=== PATIENT | male | born 1970 | race Caucasian/White ===

== ENCOUNTER 2016-07-06 07:37 | Emergency (ER) | payer MEDICAID ==
[~2016-07-06 07:37] MED LIST: VITD400 PO
[2016-07-06 07:39] VITALS: BP 156/89; PULSE 74; RESP 14; TEMP 98.2; O2SAT 98
[2016-07-06] MEDS ORDERED: SODIUM CHLOR 0.9% 1000 ML INJ 1,000 ML IV ONE (08:45)
[2016-07-06] MEDS ORDERED: SODIUM CHLORIDE 0.9% FLUSH 5 ML FLUSH IVF PRN (08:45)
[2016-07-06 09:02] VITALS: RESP 18; O2SAT 99
--- NOTE | 2016-07-06 09:19 | RADRPT ---
EXAM DATE/TIME: 07/06/2016 09:08 [facility] COMPARISON: No previous studies available for comparison. INDICATIONS : Chest pain. MEDICAL HISTORY : None. SURGICAL HISTORY : None. ENCOUNTER: Initial ACUITY: 2 days PAIN SCORE: 8/10 LOCATION: Bilateral middle chest FINDINGS: PA and lateral views of the chest demonstrate the lungs to be symmetrically aerated. There is a suspe cted small granuloma in the right upper lung. The lungs are otherwise clear. No effusion is seen. The cardiomediastinal contours are unremarkable. Osseous structures are intact. CONCLUSION: No acute disease. Zander Santiago MD on July 06, 2016 at 9:15 Board Certified Radiologist. This report was verified electronically.
[2016-07-06 09:20] LABS: AUTOMATED NEUTROPHIL # 4.3 TH/MM3 (1.8-7.7); BASOPHIL % 0.4 % (0.0-2.0); EOSINOPHIL # 0.1 TH/MM3 (0-0.4); EOSINOPHIL % 1.4 % (0.0-4.0); LYMPH % 22.8 % (9.0-44.0); LYMPHOCYTE # 1.5 TH/MM3 (1.0-4.8); MEAN CELL VOLUME 86.4 FL (80.0-100.0); MEAN CORPUSCULAR HEMOGLOBIN 29.3 PG (27.0-34.0); MEAN CORPUSCULAR HGB CONC 33.9 % (32.0-36.0); MONO % 8.7 % (0.0-8.0); NEUT % 66.7 % (16.0-70.0); PLATELET COUNT 104 TH/MM3 (150-450); RED BLOOD COUNT 5.09 MIL/MM3 (4.50-5.90); RED CELL DISTRIBUTION WIDTH 13.8 % (11.6-17.2); WHITE BLOOD COUNT 6.4 TH/MM3 (4.0-11.0)
[2016-07-06 09:23] LABS: HEMO FLAGS AUTO DIFF
[2016-07-06 09:28] LABS: APTT (PATIENT) 27.5 SEC (24.3-30.1); INTERNATIONAL NORMALIZED RATIO 0.9 RATIO; PROTHROMBIN TIME - PATIENT 10.3 SEC (9.8-11.6)
[2016-07-06 09:33] LABS: ANION GAP 7 MEQ/L (5-15); AST (GOT) 18 U/L (15-37); BLOOD UREA NITROGEN 13 MG/DL (7-18); CHLORIDE 104 MEQ/L (98-107); GLOMERULAR FILTRATION RATE 79 ML/MIN (>89); MAGNESIUM 1.8 MG/DL (1.5-2.5); POTASSIUM 4.7 MEQ/L (3.5-5.1); SODIUM (NA) 138 MEQ/L (136-145)
[2016-07-06 09:38] LABS: ALKALINE PHOSPHATASE 97 U/L (45-117); ALT (GPT) 37 U/L (12-78); TOTAL BILIRUBIN ADULT 0.3 MG/DL (0.2-1.0)
[2016-07-06] MEDS ORDERED: RANITIDINE HCL 150 MG TAB PO ONE (09:45)
[2016-07-06 09:55] LABS: PLATELET ESTIMATE SMEAR LOW (NORMAL); SCAN/DIFF AUTO DIFF CONFIRMED
[2016-07-06 09:56] LABS: PLATELET MORPHOLOGY ENLARGED (NORMAL)
[2016-07-06] MEDS ORDERED: RANI150C PO (10:19)
--- NOTE | 2016-07-06 10:20 | PD ---
HPI Chief Complaint: GI Complaint Time Seen by Provider: 08:34 Travel History International Travel<30 days: No Contact w/Intl Traveler<30days: No History of Present Illness HPI 46-year-old man, presents to the emergency department with a combination of concern for blood in his stools, vomiting, shortness of breath with some chest pain. 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 They did a resection with an immediate re-anastomosis. This is a time his had intermittent bleeding. He's had extensive workup hasn't revealed any source. Started having the symptoms again starting about a week ago. Over the past couple days that increased short of breath, weakness, hot flashes, feeling faint and lightheaded. He has had some chest pain as well. He had a heart catheter done in his 20s which was negative when he was having chest pain and symptoms were attributed distress. He had a stress test done in April that was reportedly negative as well. History Past Medical History Narrative Medical Hypertension Previously treated for prediabetes with metformin Influenza Vaccination: Yes Social History Alcohol Use: No Tobacco Use: Yes (0.5 ppd) Allergies-Medications (Allergen,Severity, Reaction): Coded Allergies: Morphine (Verified Allergy, Severe, Rash, 05/17/16) violent vomiting Phenergan (Verified Allergy, Severe, HIVES, 05/17/16) Reported Meds & Prescriptions Reported Meds & Active Scripts Active Reported Vitamin D3 (Cholecalciferol) Unknown Strength Tab 1 Tab PO DAILY Review of Systems Except as stated in HPI: all other systems reviewed are Neg Physical Exam Narrative GENERAL: Well-appearing 46-year-old man, no acute distress. SKIN: Warm and dry. HEAD: Atraumatic. Normocephalic. EYES: Pupils equal and round. No scleral icterus. No injection or drainage. ENT: No nasal bleeding or discharge. Mucous membranes pink and moist. NECK: Trachea midline. No JVD. CARDIOVASCULAR: Regular rate and rhythm. No murmur appreciated. RESPIRATORY: No accessory muscle use. Clear to auscultation. Breath sounds equal bilaterally. GASTROINTESTINAL: Mild epigastric tenderness. No rebound or guarding. MUSCULOSKELETAL: No obvious deformities. No clubbing. No cyanosis. No edema. NEUROLOGICAL: Awake and alert. No obvious cranial nerve deficits. Motor grossly within normal limits. Normal speech. PSYCHIATRIC: Appropriate mood and affect; insight and judgment normal. Data Data Last Documented VS Vital Signs Date Time Temp Pulse Resp B/P Pulse Ox O2 Delivery O2 Flow Rate FiO2 07/06/16 09:02 98 Room Air 07/06/16 09:02 18 07/06/16 07:39 98.2 74 156/89 Orders Electrocardiogram (07/06/16 08:34) Complete Blood Count With Diff (07/06/16 08:34) Comprehensive Metabolic Panel (07/06/16 08:34) Magnesium (Mg) (07/06/16 08:34) Prothrombin Time / Inr (Pt) (07/06/16 08:34) Act Partial Throm Time (Ptt) (07/06/16 08:34) Troponin I (07/06/16 08:34) Lipase (07/06/16 08:34) Ecg Monitoring (07/06/16 08:34) Iv Access Insert/Monitor (07/06/16 08:34) Oximetry (07/06/16 08:34) Oxygen Administration (07/06/16 08:34) Sodium Chloride 0.9% Flush (Ns Flush) (07/06/16 08:45) Chest, Pa & Lat (07/06/16 08:34) Sodium Chlor 0.9% 1000 Ml Inj (Ns 1000 M (07/06/16 08:45) Ranitidine (Zantac) (07/06/16 09:45) Labs Laboratory Tests Test 07/06/16 08:55 White Blood Count 6.4 TH/MM3 Red Blood Count 5.09 MIL/MM3 Hemoglobin 14.9 GM/DL Hematocrit 44.0 % Mean Corpuscular Volume 86.4 FL Mean Corpuscular Hemoglobin 29.3 PG Mean Corpuscular Hemoglobin 33.9 % Concent Red Cell Distribution Width 13.8 % Platelet Count 104 TH/MM3 Mean Platelet Volume 11.5 FL Neutrophils (%) (Auto) 66.7 % Lymphocytes (%) (Auto) 22.8 % Monocytes (%) (Auto) 8.7 % Eosinophils (%) (Auto) 1.4 % Basophils (%) (Auto) 0.4 % Neutrophils # (Auto) 4.3 TH/MM3 Lymphocytes # (Auto) 1.5 TH/MM3 Monocytes # (Auto) 0.6 TH/MM3 Eosinophils # (Auto) 0.1 TH/MM3 Basophils # (Auto) 0.0 TH/MM3 CBC Comment AUTO DIFF Differential Comment AUTO DIFF CONFIRMED Platelet Estimate LOW Platelet Morphology Comment ENLARGED Prothrombin Time 10.3 SEC Prothromb Time International 0.9 RATIO Ratio Activated Partial 27.5 SEC Thromboplast Time Sodium Level 138 MEQ/L Potassium Level 4.7 MEQ/L Chloride Level 104 MEQ/L Carbon Dioxide Level 27.0 MEQ/L Anion Gap 7 MEQ/L Blood Urea Nitrogen 13 MG/DL Creatinine 1.01 MG/DL Estimat Glomerular Filtration 79 ML/MIN Rate Random Glucose 214 MG/DL Calcium Level 8.3 MG/DL Magnesium Level 1.8 MG/DL Total Bilirubin 0.3 MG/DL Aspartate Amino Transf 18 U/L (AST/SGOT) Alanine Aminotransferase 37 U/L (ALT/SGPT) Alkaline Phosphatase 97 U/L Troponin I LESS THAN 0.02 NG/ML Total Protein 7.3 GM/DL Albumin 3.7 GM/DL Lipase 453 U/L MDM Medical Decision Making Medical Screen Exam Complete: Yes Emergency Medical Condition: Yes Interpretation(s) My review of EKG: Normal sinus rhythm at a rate of 70, normal axis, normal intervals, no acute ischemia. LABS: CBC is unremarkable. Platelets are little bit low CMP is unremarkable, glucose 214 Lipase 453 Troponin negative Coags unremarkable Chest x-ray: No acute disease Differential Diagnosis Pancreatitis, gastritis, peptic ulcer disease, bleeding, anemia, anxiety, pancreatitis, other Narrative Course Medical decision making 46-year-old man with unusual symptoms including feeling of GI bleeding, shortness of breath, lightheadedness, dizziness, faintness, chest pain. His evaluation for cardiac disease of the negative. He's not having a significant anemia or evidence of severe bleeding. Lipase is minimally elevated but I don' t think he has pancreatitis. Etiology for the patient's symptoms are unclear. I think he looks well enough to follow-up as an outpatient. Recommend GI outpatient follow-up. Diagnosis Primary Impression: Chest pain Qualified Code: R07.89 - Other chest pain Additional Instructions: Drink plenty fluids stay well-hydrated. Take ranitidine as prescribed. Return emergent department worsening chest pain, trouble breathing, fainting, or any other new or worsening symptoms. Follow-up with her primary physician, and with a pipe production worker. Med/Other Pt SpecificInfo: Prescription(s) given Scripts Ranitidine 150 Mg [id number] Mg PO BID #60 CAP Prov:Mitul Norton MD 07/06/16 Disposition: 01 DISCHARGE HOME Condition: Stable Mitul Norton MD Jul 06, 2016 10:20
[2016-07-06 11:23] VITALS: BP 143/67; TEMP 98.4
--- NOTE | 2016-07-07 08:03 | EKG ---
Date Performed: 07/06/2016 Time Performed: 08:12:39 PTAGE: 46 years EKG: Sinus rhythm Compared to previous tracing, T waves are no longer flat. NORMAL ECG PREVIOUS TRACING : 05/18/2016 04.17 DOCTOR: Mansoor Romano Interpretating Date/Time 07/07/2016 08:02:56
== END 2016-07-06 11:00 | disposition home or self-care (01) ==
LOC: NEPE 07:37
DX: R07.9 Chest pain, unspecified (principal); K92.1 Melena; R06.02 Shortness of breath; R11.10 Vomiting, unspecified; I10 Essential (primary) hypertension; Z72.0 Tobacco use
CPT/HCPCS: 71020; 80053; 83690; 83735; 84484; 85025; 85610; 85730; 93005; 99285; J7030

== ENCOUNTER 2016-08-12 13:29 | Emergency (ER) | payer OTHER, MEDICAID ==
[~2016-08-12] VITALS: Ht 177.8 cm; Wt 100.0 kg
[~2016-08-12 13:29] MED LIST changes: +RANI150C PO
[2016-08-12 13:32] VITALS: BP 159/98; PULSE 107; RESP 18; TEMP 98.1; O2SAT 99
[2016-08-12] MEDS ORDERED: AMLO10 PO (13:42)
--- NOTE | 2016-08-12 14:02 | PD ---
HPI . s/p fall and hurt right leg and right wrist Chief Complaint: Fall Time Seen by Provider: 14:02 Travel History International Travel<30 days: No Contact w/Intl Traveler<30days: No Traveled to known affect area: No History of Present Illness HPI 46-year-old male with hypertension, borderline diabetes and tobaccoism here with complaints of falling off a ladder earlier today. Patient was on a garage and trying to get down when the ladder slipped from beneath him and he sort of rolled down the ladder. Patient says he hit his right lower extremity first and hit his right wrist on an air conditioning unit. He denies any injury to left LE or head. He tells me he is up-to-date on his tetanus vaccine. He is now complaining of right ankle pain radiating into the knee and mid thigh. He also has right wrist pain. The ankle pain is rated as 8 out of 10. The wrist pain is 5 out of 10. He does report an allergy to morphine, but tells me he is able to take Percocet and has done so in the past safely. He denies any loss of consciousness or syncopal episode. At the time of examination patient denies any fever, chills, chest pain, shortness of breath, nausea, vomiting, diaphoresis, or abdominal pain. PFSH Past Medical History Heart Rhythm Problems: No Cardiac Catheterization: Yes Cardiovascular Problems: Yes (NV X4, CATH, NO STENTS) High Cholesterol: No Congestive Heart Failure: No Diabetes: No Diminished Hearing: No Gastrointestinal Disorders: Yes (Tumor removal on bowel jun 2014 ) Hypertension: Yes Myocardial Infarction: Yes (Mild about 10 years ago, no interventions taken, per pt.) Tetanus Vaccination: < 5 Years Influenza Vaccination: Yes Past Surgical History Abdominal Surgery: Yes (colon resection, ) Coronary Artery Bypass Graft: No Other Surgery: Yes (cardiac cath) Family History Family Myocardial Infarction: No Social History Alcohol Use: Yes (ocassionally) Tobacco Use: Yes (3 cigarrette per day) Substance Use: No Allergies-Medications (Allergen,Severity, Reaction): Coded Allergies: Morphine (Verified Allergy, Severe, Rash, 08/12/16) violent vomiting Phenergan (Verified Allergy, Severe, HIVES, 08/12/16) Reported Meds & Prescriptions Reported Meds & Active Scripts Active Tramadol (Tramadol HCl) 50 Mg Tab 50 Mg PO Q8H PRN Ibuprofen 800 Mg Tab 800 Mg PO TID Keflex (Cephalexin) 500 Mg Cap 500 Mg PO Q6H Reported Norvasc (Amlodipine Besylate) 10 Mg Tab 10 Mg PO DAILY Review of Systems General / Constitutional: No: Fever Eyes: No: Visual changes HENT: No: Headaches Cardiovascular: No: Chest Pain or Discomfort Respiratory: No: Shortness of Breath Gastrointestinal: No: Abdominal Pain Genitourinary: No: Dysuria Musculoskeletal: Positive: Pain (right ankle/leg pain/ right wrist pain) Skin: No Rash Neurologic: No: Weakness Psychiatric: No: Depression Endocrine: No: Polydipsia Hematologic/Lymphatic: No: Easy Bruising Physical Exam Narrative GENERAL: AAO x 3, no acute distress, Well-nourished, well-developed patient. SKIN: Warm and dry. No visible rashes or bruising. small 1.4 cm laceration on right wrist. Barely . No bleeding. Clean. No FB identified. Large abrasion to right biceps clean without any evidence of dirt or residue. HEAD: Normocephalic and atraumatic. NO visible bruising. EYES: No scleral icterus. No injection or drainage. EOM intact, PERRLA ENT: No nasal drainage noted. Mucous membranes pink. Airway patent. NECK: Supple, trachea midline. No JVD. CARDIOVASCULAR: Regular rate and rhythm without murmurs, gallops, or rubs. RESPIRATORY: Breath sounds equal bilaterally. No accessory muscle use. No rhonchi or rales. GASTROINTESTINAL: Abdomen soft, non-tender, nondistended. EXTREMITIES: No cyanosis or edema. Right leg, + point tenderness to heel/ankle/ tib/fib. Hip joint stable without laxity. Right wrist minimal point tenderness. No ecchymosis visible. BACK: Nontender without obvious deformity. No CVA tenderness. PSYCH: AAO x 3, normal affect. LACERATION LOCATION: right wrist volar distal radial LENGTH: 1.4 cm no definitive separation of skin requiring actual sutures, small tear derma galicia and steri strips placed REPAIR: The area of the laceration was prepped with Betadine and sterilely draped. The wound was copiously irrigated and explored without evidence of foreign body, tendon injury or neurovascular injury. The wound was closed using dermabond and steri strips. This was a single layer repair. A sterile dressing was applied. The patient was advised to keep the dressing clean and dry. Patient tolerated the procedure well. Data Data Last Documented VS Vital Signs Date Time Temp Pulse Resp B/P Pulse Ox O2 Delivery O2 Flow Rate FiO2 08/12/16 16:20 97.8 76 17 130/81 99 08/12/16 13:45 Room Air Orders Ankle, Limited (Ap&Lat) (08/12/16 14:11) Femur (Ap & Lat/2vws) (08/12/16 14:11) Foot, Complete (Cam8ecw) (08/12/16 14:11) Foot, Heel Only (Pem4wdw) (08/12/16 14:11) Hip, Uni(Ap&Lat) Wo Ap Pelvis (08/12/16 14:11) Wrist, Complete ([id number]) (08/12/16 14:11) Oxycodone-Acetamin 5-325 Mg (Percocet (08/12/16 14:15) MDM Medical Decision Making Medical Screen Exam Complete: Yes Emergency Medical Condition: Yes Medical Record Reviewed: Yes Differential Diagnosis right wrist laceration, right wrist fracture, right calcaneal fracture, right tib-fib fracture, sprain, dislocation of hip Narrative Course 46-year-old male with hypertension, borderline diabetes and tobaccoism here with complaints of falling off a ladder earlier today. Patient was on a garage and trying to get down when the ladder slipped from beneath him and he sort of rolled down the ladder. Patient says he hit his right lower extremity first and hit his right wrist on an air conditioning unit. He denies any injury to left LE or head. He tells me he is up-to-date on his tetanus vaccine. He is now complaining of right ankle pain radiating into the knee and mid thigh. He also has right wrist pain. The ankle pain is rated as 8 out of 10. The wrist pain is 5 out of 10. He does report an allergy to morphine, but tells me he is able to take Percocet and has done so in the past safely. He denies any loss of consciousness or syncopal episode. At the time of examination patient denies any fever, chills, chest pain, shortness of breath, nausea, vomiting, diaphoresis, or abdominal pain. Patient seen and examined. Xrays ordered. Percocet given for pain. Xrays all negative for acute fracture or dislocation. Patient given ibuprofen 800 TID PRN, Tramadol and Keflex to cover infection. Discussed f/u with PCP for worker's comp clearance to return to work. Patient verbalized understanding of instructions, questions were answered, and thanked me for their care. I advised them if their condition worsens, please return to the nearest emergency room for further care. Diagnosis Primary Impression: Fall Qualified Code: W19.XXXA - Fall, initial encounter Additional Impressions: Leg pain, right Wrist laceration Qualified Code: S61.511A - Wrist laceration, right, initial encounter Patient Instructions: Fall Prevention (ED), General Instructions, Laceration ( ED), Leg Pain (ED) Additional Instructions: Please return to emergency department if your symptoms return or worsen. Follow up with your primary care provider. Take medications as prescribed. As we discussed, the steri strips will eventually fall off themselves. Make sure to change dressing daily and try to keep it moisture free. Scripts Tramadol 50 Mg Tab50 Mg PO Q8H PRN (PAIN) #10 TAB Ref 0 Prov:Faye Ramirez MD 08/12/16 Ibuprofen 800 Mg [id number] Mg PO TID #30 TAB Prov:Monica Mcmullen 08/12/16 Cephalexin (Keflex)500 Mg [id number] Mg PO Q6H #28 CAP Ref 0 Prov:Monica Mcmullen 08/12/16 Disposition: 01 DISCHARGE HOME Condition: Stable Monica Mcmullen Aug 12, 2016 14:02 Monica Mcmullen Aug 12, 2016 14:02
[2016-08-12] MEDS ORDERED: oxyCODONE/ACETAMINOPHEN 5 MG/325 MG TAB PO ONE (14:15)
[2016-08-12 15:22] VITALS: RESP 17
--- NOTE | 2016-08-12 15:47 | RADRPT ---
EXAM DATE/TIME: 08/12/2016 14:43 [facility] COMPARISON: No previous studies available for comparison. INDICATIONS : Right ankle pain after falling off a roof today. MEDICAL HISTORY : Previous right ankle fracture. SURGICAL HISTORY : None. ENCOUNTER: Initial ACUITY: PAIN SCORE: 8/10 LOCATION: Right ankle. FINDINGS: Two view examination was performed of the right ankle. The bony structures are in normal alignment. No evidence of fracture, dislocation, or soft tissue swelling. No radiopaque foreign bodies are see n. Small plantar calcaneal spur. Bony mineralization is normal. CONCLUSION: No evidence of recent bony injury. Kirill Cervantes MD on August 12, 2016 at 15:46 Board Certified Radiologist. This report was verified electronically.
--- NOTE | 2016-08-12 15:48 | RADRPT ---
EXAM DATE/TIME: 08/12/2016 14:46 [facility] COMPARISON: No previous studies available for comparison. INDICATIONS : Right foot pain after falling off a roof today. MEDICAL HISTORY : None. SURGICAL HISTORY : None. ENCOUNTER: Initial ACUITY: 1 day PAIN SCORE: 7/10 LOCATION: Right heel. FINDINGS: Three view examination of the right foot demonstrates no soft tissue swelling, dislocation, or fractu re. The tarsal bones appear intact. The interphalangeal and metatarsophalangeal joints are intact. The calcaneus is intact. Bony mineralization is normal. CONCLUSION: No fracture seen. Kirill Cervantes MD on August 12, 2016 at 15:47 Board Certified Radiologist. This report was verified electronically.
--- NOTE | 2016-08-12 15:48 | RADRPT ---
EXAM DATE/TIME: 08/12/2016 14:44 [facility] COMPARISON: No previous studies available for comparison. INDICATIONS : Right heel pain after falling off a roof today. MEDICAL HISTORY : None. SURGICAL HISTORY : None. ENCOUNTER: Initial ACUITY: 1 day PAIN SCORE: 7/10 LOCATION: Right heel. FINDINGS: Two view examination of the right heel demonstrates the trabecula to be intact with no evidence of fr acture. There is a normal calcaneal angle. Small plantar calcaneal spur. The soft tissues are of n ormal thickness. CONCLUSION: No fracture seen. Kirill Cervantes MD on August 12, 2016 at 15:46 Board Certified Radiologist. This report was verified electronically.
--- NOTE | 2016-08-12 15:49 | RADRPT ---
EXAM DATE/TIME: 08/12/2016 14:51 [facility] COMPARISON: No previous studies available for comparison. INDICATIONS : Right wrist pain after falling off a roof today. MEDICAL HISTORY : None. SURGICAL HISTORY : None. ENCOUNTER: Initial ACUITY: 1 day PAIN SCORE: 7/10 LOCATION: Right wrist. FINDINGS: Three view examination of the right wrist demonstrates no soft tissue swelling, dislocation, or fract ure. The carpal bones are in normal alignment. The joint spaces are maintained. Bony mineralizatio n is normal.CONCLUSION: No fracture seen. Kirill Cervantes MD on August 12, 2016 at 15:47 Board Certified Radiologist. This report was verified electronically.
--- NOTE | 2016-08-12 15:50 | RADRPT ---
EXAM DATE/TIME: 08/12/2016 14:56 [facility] COMPARISON: No previous studies available for comparison. INDICATIONS : Right leg pain after falling off a roof today. MEDICAL HISTORY : None. SURGICAL HISTORY : None. ENCOUNTER: Initial ACUITY: 1 day PAIN SCORE: 7/10 LOCATION: Right femur. FINDINGS: Two view examination of the right femur demonstrates no evidence of fracture or dislocation. Bony mi neralization is normal. The soft tissue structures are intact. CONCLUSION: No evidence of recent bone injury. Kirill Cervantes MD on August 12, 2016 at 15:48 Board Certified Radiologist. This report was verified electronically.
--- NOTE | 2016-08-12 15:50 | RADRPT ---
EXAM DATE/TIME: 08/12/2016 14:56 [facility] COMPARISON: No previous studies available for comparison. INDICATIONS : Right hip pain after falling off a roof today. MEDICAL HISTORY : None. SURGICAL HISTORY : None. ENCOUNTER: Initial ACUITY: 1 day PAIN SCORE: 7/10 LOCATION: Right hip. FINDINGS: A two view examination of the right hip was performed. The primary and secondary trabecular pattern of the femoral neck is intact. The hip joint is of normal width without significant sclerosis or bon y hypertrophy. The acetabulum is grossly intact. CONCLUSION: No fracture seen. Kirill Cervantes MD on August 12, 2016 at 15:48 Board Certified Radiologist. This report was verified electronically.
[2016-08-12] MEDS ORDERED: IBUP800T23 PO (16:08)
[2016-08-12] MEDS ORDERED: CEPH-460 PO (16:08)
[2016-08-12] MEDS ORDERED: TRAM50TA PO (16:10)
[2016-08-12 16:20] VITALS: BP 130/81; TEMP 97.8
--- NOTE | 2016-08-12 18:37 | PD ---
Data Data Last Documented VS Vital Signs Date Time Temp Pulse Resp B/P Pulse Ox O2 Delivery O2 Flow Rate FiO2 08/12/16 16:20 97.8 76 17 130/81 99 08/12/16 13:45 Room Air Orders Ankle, Limited (Ap&Lat) (08/12/16 14:11) Femur (Ap & Lat/2vws) (08/12/16 14:11) Foot, Complete (Oiy2mmm) (08/12/16 14:11) Foot, Heel Only (Cet1jfr) (08/12/16 14:11) Hip, Uni(Ap&Lat) Wo Ap Pelvis (08/12/16 14:11) Wrist, Complete (Zgx2krk) (08/12/16 14:11) Oxycodone-Acetamin 5-325 Mg (Percocet (08/12/16 14:15) MDM Supervised Visit with MAGUE: Yes Narrative Course The history, exam, and medical decision-making in the associated midlevel provider note were completed with my assistance. I reviewed and agree with the findings presented. I attest that I had a [id number] encounter with the patient on the same day, and personally performed and documented my assessment and findings in the medical record. *My assessment and Findings: This is a 46-year-old male who presents to the emergency department having had a fall off of a ladder injuring his right lower extremity. He has significant amount of pain in his right heel and ankle. X- rays were obtained and lacerations were repaired. Patient appears well and was discharged home. Diagnosis Primary Impression: Fall Qualified Code: W19.XXXA - Fall, initial encounter Additional Impressions: Leg pain, right Wrist laceration Qualified Code: S61.511A - Wrist laceration, right, initial encounter Patient Instructions: General Instructions, Laceration (ED), Fall Prevention ( ED), Leg Pain (ED) Departure Forms: Work Release, Enter return to work date: Aug 14, 2016 Tests/Procedures Additional Instruction: Please return to emergency department if your symptoms return or worsen. Follow up with your primary care provider. Take medications as prescribed. As we discussed, the steri strips will eventually fall off themselves. Make sure to change dressing daily and try to keep it moisture free. Scripts Tramadol 50 Mg Tab50 Mg PO Q8H PRN (PAIN) #10 TAB Ref 0 Prov:Faye Ramirez MD 08/12/16 Ibuprofen 800 Mg [id number] Mg PO TID #30 TAB Prov:Monica Mcmullen 08/12/16 Cephalexin (Keflex)500 Mg [id number] Mg PO Q6H #28 CAP Ref 0 Prov:Monica Mcmullen 08/12/16 Disposition: 01 DISCHARGE HOME Condition: Stable Faye Ramirez MD Aug 12, 2016 18:37
== END 2016-08-12 16:20 | disposition home or self-care (01) ==
LOC: NEPC 13:29
DX: S61.511A Laceration without foreign body of right wrist, initial encounter (principal); M79.604 Pain in right leg; I10 Essential (primary) hypertension; R73.03 Prediabetes; I25.2 Old myocardial infarction; Z86.79 Personal history of other diseases of the circulatory system; Z87.19 Personal history of other diseases of the digestive system; Z72.0 Tobacco use; W11.XXXA Fall on and from ladder, initial encounter; Y92.015 Private garage of single-family (private) house as the place of occurrence of the external cause; Y99.0 Civilian activity done for income or pay
CPT/HCPCS: 12001; 73110; 73502; 73552; 73600; 73630; 73650; 99284